=== PATIENT | female | born 1995 | race Caucasian/White ===

== ENCOUNTER 2019-10-06 12:43 | Outpatient (CLI) | payer OTHER ==
--- NOTE | 2019-10-06 13:05 | RAD ---
Exam: 2 views lumbar spine HISTORY: Follow-up fracture COMPARISON: None FINDINGS: 5 lumbar type vertebra. Irregularity along the anterior superior endplate of L4. No significant loss of vertebral body height. No retropulsion. Disc space heights are preserved No spondylolisthesis or spondylolysis. Straightening of normal lumbar lordosis may be patient positio n or muscle. IMPRESSION: Indeterminate fracture of the anterior superior aspect of L4
== END 2019-10-06 12:44 | disposition home or self-care (01) ==
LOC: TBSIIMAG 12:43
PROVIDERS: ATTEND Neurological Surgery
DX: S32.048A Other fracture of fourth lumbar vertebra, initial encounter for closed fracture (principal)
CPT/HCPCS: 72100